=== PATIENT | female | born 1955 | race Caucasian/White ===

== ENCOUNTER 2018-05-09 16:05 | Outpatient (CLI) | payer OTHER | END 2018-05-09 16:06 | disposition home or self-care (01) | LOC: LABBT 16:05 | PROVIDERS: ATTEND Orthopaedic Surgery | DX: Z01.818 Encounter for other preprocedural examination (principal); G56.01 Carpal tunnel syndrome, right upper limb | CPT/HCPCS: 93005; 93010 ==

== ENCOUNTER 2018-05-13 05:49 | Day surgery (SDC) | payer OTHER ==
[2018-05-09 16:33] VITALS: BMI 34.9
[2018-05-13] MEDS ORDERED: Lidocaine 1% w/Epinephrine 1:200K 30 ML VIAL ONE (06:35)
[2018-05-13] MEDS ORDERED: Midazolam HCl 2 mg/2 ml Vial ONE ×2 (06:55→07:10)
[2018-05-13] MEDS ORDERED: Fentanyl 100 MCG/2 ML VIAL ONE (06:55)
[2018-05-13] MEDS ORDERED: CEFAZOLIN/Water 2 GM/20 ML SYRINGE ONE (07:10)
[2018-05-13] MEDS ORDERED: Sodium Chloride 0.9% 100 ML ONE (07:29)
[2018-05-13] MEDS ORDERED: CEFAZOLIN 1 GM VIAL ONE (07:29)
--- NOTE | 2018-05-13 08:55 | OP ---
DATE OF PROCEDURE: 05/13/2018 PREOPERATIVE DIAGNOSIS: Carpal tunnel, right. POSTOPERATIVE DIAGNOSIS: Carpal tunnel, right. SURGEON: Taqueria Levy M.D. ANESTHESIA: TIVA with local. BLOOD LOSS: Minimal. SPECIMEN: None. DRAINS: None. COMPLICATIONS: None. PROCEDURE IN DETAIL: After appropriate consent was obtained, the patient was taken to the operating room where TIVA anesthesia was induced. The arm was prepped and draped in the sterile fashion. The a rm was exsanguinated. The tourniquet was inflated to 250 mmHg. A longitudinal incision was made. Hemo stasis obtained. Dissection was carried down to the transverse carpal ligament. The transverse carpal ligament was incised. Hemostat was placed deep in the transverse carpal ligament. The knife was used to cut down unto the ligament and hemostat. Care was taken to protect the contents of the carpal canal. Attention was then turned proximally. Metzenbaum scissors were used to release the carp al ligament into the forearm fascia. The carpal tunnel was palpated. There were no masses. The tourni quet was released. Hemostasis was obtained. Copious irrigation performed. The skin was closed with 4 -0 Nylon. A sterile dressing was applied and the patient was placed in a splint. There are no complic ations.
[2018-05-13] MEDS ORDERED: Ondansetron HCl/PF 4 MG/2 ML Vial ONE (14:53)
[2018-05-13] MEDS ORDERED: PROPOFOL 200 MG/20 ML VIAL ONE (14:53)
== END 2018-05-13 12:47 | disposition home or self-care (01) ==
LOC: SDC 05:49
PROVIDERS: ATTEND Orthopaedic Surgery
PROC: 01N50ZZ Release Median Nerve, Open Approach (ICD-10-PCS; principal; 2018-05-13)
DX: G56.03 Carpal tunnel syndrome, bilateral upper limbs (principal); I10 Essential (primary) hypertension; E78.00 Pure hypercholesterolemia, unspecified; L65.9 Nonscarring hair loss, unspecified; Z79.899 Other long term (current) drug therapy
CPT/HCPCS: J0690; J2250; J2405; J2704; J3010; J7050

== ENCOUNTER 2022-03-16 17:21 | Emergency (ER) | payer OTHER, MEDICARE | END 2022-03-16 18:13 | disposition home or self-care (01) | LOC: ERS 17:21 | DX: S80.02XA Contusion of left knee, initial encounter (principal); I10 Essential (primary) hypertension; W01.0XXA Fall on same level from slipping, tripping and stumbling without subsequent striking against object, initial encounter ==